=== PATIENT | male | born 1960 | race Caucasian/White ===

== ENCOUNTER 2018-12-07 00:32 | Outpatient (CLI) | payer MEDICARE, MEDICAID, SELFPAY ==
--- NOTE | 2018-12-07 12:49 | DI.NM_ITS ---
APPROVED REPORT Exam: Pharmacologic Patient Location: Out-Patient Room/Bed: Stress Nurse: Zaida Sibley RN Rhythm: Sinus bradycardia. Prolonged NV interval. Indications: Chest Pain, Atrial Fibrillation, Dyspnea Medical History Medical History: Angina, Arrhythmia, Cardiomyopathy, COPD, Pre-Diabetic ??? Noninsulin, Hyperlipidemi a, Pre-HTN Medications: Metoprolol. Ranitidine. Allergies: Multiple allergies per patient report. No medical records on file. Cardiac Risk Factors: HTN, Hyperlipidemia, Diabetes (non-insulin), FHX of CAD, SOB Pretest Chest Pain Characteristics: Non-exertional Chest pain, Dyspnea Exercise History: Sedentary Physical Disabilities: Back, Knees Stress Test Details Test: Pharmacologic stress testing performed using 0.4 mg of regadenoson per 5 mL given IV over 10 s econds. Rest Isotope: Tc-99m Sestamibi. Dose: 13.2 Date: 12/07/2018 Stress Isotope: Tc-99m Sestamibi. Dose: 33.5 Date: 12/07/2018 Injection Time: 1215 HR Resting HR: 58 bpm Max Heart Rate (APMHR): 161 bpm Max HR Achieved: 84 bpm Target HR (85% APMHR): 136 bpm % of APMHR: 52 HR response to stress: Normal HR response to stress BP Resting BP: 140/68 mmHg Max BP: 152/76 mmHg BP response to stress: Normal blood pressure response to Lexiscan injection. ECG Resting ECG: Sinus Bradycardia. Prolonged NV interval. Stress ECG: Sinus Rhythm ST Change: Normal Maximum ST Deviation: 0 mm Arrhythmia: None Recovery ECG: Sinus Rhythm Recovery ST Change: Normal Recovery Arrhythmia: None Clinical Reason for Termination: Completed protocol Stress Symptoms: No significant side effects after Lexiscan injection. Stress ECG Conclusion 1. ECG: Non-ischemic 2. Clinical: Non-ischemic 3. This represents a normal test Test Summary Supine 58 140/68 1 min post injection 73 136/84 3 min post injection 84 136/78 6 min post injection 72 152/76
[2018-12-07] MEDS: Regadenoson 0.4 MG/5 ML SYR IVP (14:03)
== END 2018-12-07 00:52 ==
PROVIDERS: PCP Family Medicine; Visit Provider Family Medicine
DX: R07.89 Other chest pain (principal); I48.91 Unspecified atrial fibrillation; R06.09 Other forms of dyspnea; I42.9 Cardiomyopathy, unspecified; E78.5 Hyperlipidemia, unspecified
CPT/HCPCS: 78452; 93016; 93018; 93017; J2785